=== PATIENT | female | born 1990 | race Two or more races ===

== ENCOUNTER 2022-08-26 23:35 | Emergency (ER) | payer MEDICAID ==
[~2022-08-26] VITALS: Ht 154.9 cm; Wt 70.3 kg
[2022-08-27] VITALS: BP 112/74
[2022-08-27 00:36] LABS: Urine Bacteria FEW /hpf (None Seen); Urine Blood Negative /uL (Negative); Urine Mucus FEW (None Seen); Urine Specific Gravity 1.012 (1.001-1.035); Urine WBC 11 /hpf (0 - 5)
[2022-08-27] MEDS ORDERED: KETOROLAC TROMETH 30 MG/ML 1ML VIAL IM ONE (02:15)
== END 2022-08-27 04:47 | disposition left against medical advice (07) ==
LOC: ER 23:35
DX: S30.0XXA Contusion of lower back and pelvis, initial encounter (principal); W01.0XXA Fall on same level from slipping, tripping and stumbling without subsequent striking against object, initial encounter; Y93.89 Activity, other specified; Y92.89 Other specified places as the place of occurrence of the external cause; Y99.8 Other external cause status
CPT/HCPCS: 72192; 81001

== ENCOUNTER 2022-12-31 19:01 | Emergency (ER) | payer MEDICAID, OTHER ==
[~2022-12-31] VITALS: Ht 154.9 cm; Wt 63.7 kg
[2022-12-31 23:40] VITALS: BP 110/65; PULSE 79; RESP 19; TEMP 98.4; O2SAT 98
[2023-01-01 12:03] LABS: Hepatitis B Surface Antibody Positive (Negative)
[2023-01-01 12:16] LABS: Hepatitis B Surface Antigen Negative (Negative)
== END 2022-12-31 23:40 | disposition home or self-care (01) ==
LOC: ER 19:01
DX: T75.89XA Other specified effects of external causes, initial encounter (principal); X58.XXXA Exposure to other specified factors, initial encounter; Y93.89 Activity, other specified; Y92.89 Other specified places as the place of occurrence of the external cause; Y99.8 Other external cause status
CPT/HCPCS: 36415; 86703; 86706; 86803; 87340